=== PATIENT | female | born 1980 | race Caucasian/White ===

== ENCOUNTER 2021-04-12 19:07 | Emergency (ER) | payer SELFPAY ==
[2021-04-12 22:30] LABS: HEMOGLOBIN 14.9 gm/dl (12.3-15.3); RED BLOOD COUNT 5.27 M/UL (4.00-5.10); WHITE BLOOD COUNT 8.6 K/UL (4.5-11.0)
[2021-04-12 22:49] LABS: BUN/CREATININE RATIO 17 (0-10)
[2021-04-13] MEDS ORDERED: MACROBID 100 M100 M1 PO (03:16)
[2021-04-13] MEDS ORDERED: PERCOCET 5/325 T1 EA PO (03:16)
== END 2021-04-13 03:30 | disposition home or self-care (01) ==
LOC: ER1 19:07
PROVIDERS: Physician Assistant
DX: N20.0 Calculus of kidney (principal); F17.290 Nicotine dependence, other tobacco product, uncomplicated; Z90.710 Acquired absence of both cervix and uterus; Z90.49 Acquired absence of other specified parts of digestive tract
CPT/HCPCS: 80048; 81001; 85025; 99284

== ENCOUNTER 2021-09-15 02:46 | Emergency (ER) | payer SELFPAY ==
[~2021-09-15 02:46] MED LIST: MACROBID 100 M100 M1 PO; PERCOCET 5/325 T1 EA PO
[2021-09-15 03:38] LABS: HEMOGLOBIN 13.9 gm/dl (12.3-15.3); RED BLOOD COUNT 4.71 M/UL (4.00-5.10); WHITE BLOOD COUNT 9.7 K/UL (4.5-11.0)
[2021-09-15 03:44] LABS: BUN/CREATININE RATIO 11 (0-10)
== END 2021-09-15 07:32 | disposition home or self-care (01) ==
LOC: ER1 02:46
PROVIDERS: Family Medicine
DX: R56.9 Unspecified convulsions (principal); R51.9 Headache, unspecified; M25.511 Pain in right shoulder; F17.200 Nicotine dependence, unspecified, uncomplicated; W01.10XA Fall on same level from slipping, tripping and stumbling with subsequent striking against unspecified object, initial encounter; Y92.009 Unspecified place in unspecified non-institutional (private) residence as the place of occurrence of the external cause
CPT/HCPCS: 70450; 71045; 73030; 80053; 82550; 82553; 84484; 85025; 99285

== ENCOUNTER 2021-11-27 07:21 | Emergency (ER) | payer SELFPAY ==
[2021-11-27] MEDS ORDERED: PENVEE K 500 M500 MG PO (07:47)
[2021-11-27] MEDS ORDERED: XYLOCAINE VISC100 ML EXT (07:47)
[2021-11-27] MEDS ORDERED: IBU800 MG PO (07:47)
[2021-11-27] MEDS ORDERED: PAROEX473 ML MM (07:47)
== END 2021-11-27 08:10 | disposition home or self-care (01) ==
LOC: ER1 07:21
DX: K12.1 Other forms of stomatitis (principal); K02.9 Dental caries, unspecified; K08.89 Other specified disorders of teeth and supporting structures; F17.210 Nicotine dependence, cigarettes, uncomplicated
CPT/HCPCS: 99282